=== PATIENT | female | born 1990 | race Two or more races ===

== ENCOUNTER 2025-05-14 14:51 | Inpatient (IN) | payer OTHER ==
[~2025-05-14] VITALS: Ht 162.6 cm; Wt 63.5 kg
--- NOTE | 2025-05-14 15:05 | ECG ---
[facility] Test Date: 2025-05-14 Test Time: 14:52:15 Pat Name: ANTHONY LONG Department: ED Room: Gender: F Prosthetics Lab Technician: gp : 1990 Requested By: FREDIS STOKES Order Number: [id number] Reading MD: Measurements Intervals [place] Rate: 116 P: 83 NH: 166 QRS: 48 QRSD: 117 T: 60 QT: 347 QTc: 483 Interpretive Statements Sinus tachycardia Probable left atrial enlargement Incomplete right bundle branch block Baseline wander in lead(s) V1,V3,V5,V6 Please click the below link to view image of tracing.
--- NOTE | 2025-05-14 15:54 | ED.PDOC ---
History of Present Illness HPI Comments Patient is a 34-year-old female with a past medical history of hypertension presented to the ED with a chief complaint of 2 episodes of syncope. Patient went to convenient stool in the morning down the following which EMS were called with the patient likely. While in the driveway at home she had an episode of dizziness, lightheadedness following which she fell down but was caught in her fall by her family, some cramping with a had were reported by the family. Patient denied any urinary, fecal incontinence, tongue bite, no postictal confusion after she regained consciousness of the patient reports she was never fully unconscious as she could hear people talking. Patient denied any di arrheal illness, symptoms of UTI, emesis with the last 2-3 days. Patient does report of drinking 8 cans of beer every day and her last drink was around 11:00 p.m. yesterday. Patient does not report of any episode of syncope in the past. Her last menstrual period was Wednesday last week Chief Complaint: Syncope Time Seen by MD: 15:12 Primary Care Provider: UNKNOWN Allergies: Coded Allergies: NO KNOWN ALLERGIES (Unverified , 05/14/25) Mode of Arrival: EMS Past Medical History PAST MEDICAL HISTORY: HTN Surgical History: Denies all surgeries Surgical History (Other): Knee surgery ASSOCIATE FINANCIAL ADVISOR History: No Pertinent ASSOCIATE FINANCIAL ADVISOR History Family History Family History: Unknown Family History (Other): Patient reports her mother has multiple medical conditions, denies any history of sudden cardiac in the family Social History Smoker: Non-Smoker Alcohol: Heavy Drugs: Denies Drug Use Lives In: Home Constitutional: reports: diaphoresis, fatigue EENTM: denies: blurred vision, double vision, ear bleeding, ear discharge, ear drainage, ear pain, ear ringing, eye pain, eye redness, hearing loss, mouth pain, mouth swelling, nasal discharge, nose bleeding, nose congestion, nose pain, photophobia, tearing, throat pain, throat swelling, voice changes, others Respiratory: denies: cough, hemoptysis, orthopnea, SOB at rest, shortness of breath, SOB with excertion, stridor, wheezing, others Cardiovascular: denies: chest pain, dizzy spells, diaphoresis, Dyspnea on exertion, edema, irregular heart beat, left arm pain, lightheadedness, palpitations, PND, syncope, others Gastrointestinal: denies: abdomen distended, abdominal pain, blood streaked bowels, constipated, diarrhea, dysphagia, difficulty swallowing, hematemesis, melena, nausea, poor appetite, poor fluid intake, rectal bleeding, rectal pain, vomiting, others Genitourinary: denies: abnormal vagina bleeding, burning, dyspareunia, dysuria, flank pain, frequency, hematuria, incontinence, pain, , vagina discharge, urgency, others Neurological: reports: dizziness, fainting, weakness Musculoskeletal: denies: back pain, gout, joint pain, joint swelling, muscle pain, muscle stiffness, neck pain, others Integumetry: denies: bruises, change in color, change in hair/nails, dryness, laceration, lesions, lumps, rash, wounds, others Allergic/Immunocompromised: denies: Difficulty Healing, Frequent Infections, Hives, Itching, others Hematologic/Lymphatic: denies: anemia, blood clots, easy bleeding, easy bruising, swollen glands, others Endocrine: denies: excessive hunger, excessive sweating, excessive thirst, excessive urination, flushing, intolerance to cold, intolerance to heat, unexplained weight gain, unexplained weight loss, others Psychiatric: denies: anxiety, bipolar disorder, depression, hopeless, panic disorder, schizophrenia, sleepless, suicidal, others Physical Exam General Appearance: Mild Distress HEENT: Normal ENT Inspection, Pharynx Normal, TMs Normal Neck: Full Range of Motion, Non-Tender, Normal, Normal Inspection Respiratory: Chest Non-Tender, Lungs Clear, No Accessory Muscle Use, No Respiratory Distress, Normal Breath Sounds Cardiovascular: No Edema, No JVD, No Murmur, No Gallop, Normal Peripheral Pulses, Regular Rate/Rhythm Breast Exam: Deferred Gastrointestinal: No Organomegaly, Non Tender, No Pulsatile Mass, Normal Bowel Sounds, Soft Genitalia: Deferred Pelvic: Deferred Rectal: Deferred Extremities: No calf tenderness, Normal capillary refill, Normal inspection, Normal range of motion, Non-tender, No pedal edema Neurologic: Alert, machine puller over II-XII nml as Tested, No Motor Deficits, Normal Affect, Normal Mood, No Sensory Deficits Cerebellar Function: Normal Reflexes: Normal Skin: Dry, Normal Color, Warm Peripheral Pulses: 2+ carotid (R), 2+ carotid (L), 2+ femoral (R), 2+ femoral (L), 2+ dorsalis pedis (R), 2+ dorsalis pedis (L), 2+ Radial (R), 2+ Radial (L) Lymphatic: No Adenopathy Was a procedure done? Was a procedure done?: No EKG EKG : Pulse Rate (adult): 116 [place]: Normal Cardiac Rhythm: ST Block: None Hypertrophy: None ST: Normal Differential Dx Considerations may include: Vasovagal syncope, dehydration, seizure, stroke, heat exhaustion X-Ray, Labs, Meds, VS Vital Signs Date Time Temp Pulse Resp B/P (MAP) Pulse Ox O2 Delivery O2 Flow Rate FiO2 05/14/25 20:15 99.4 97 14 143/94 (110) 97 99.4 05/14/25 18:00 98.0 91 18 134/95 (108) 97 98.0 05/14/25 16:00 100 20 146/92 (110) 96 05/14/25 15:54 116 05/14/25 15:45 97.6 107 22 177/84 (115) 96 97.6 05/14/25 15:45 Room Air* 0 21 05/14/25 15:07 100.0 114 16 124/63 (83) 99 100.0 05/14/25 14:52 116 Lab Test 05/14/25 20:45 05/14/25 17:53 05/14/25 17:34 05/14/25 15:47 Range/Units Urine Test Pending Urine Opiates Screen Pending Urine Fentanyl Screen Pending Urine Barbiturates Screen Pending Urine Phencyclidine Screen Pending Urine Amphetamines Screen Pending Urine Benzodiazepines Screen Pending Urine Cocaine Screen Pending Urine Cannabinoids Screen Pending Lactic Acid Level 5.1 *H 8.7 *H 0.4-2.0 mmol/L Blood Gas Specimen Type Arterial Blood Gas Sample Site Right radial Blood Gas Patient Temperature 37.0 Arterial Blood Date Drawn [id number] Arterial Blood pH 7.569 *H 7.350-7.450 Arterial Blood Partial Pressure CO2 17.4 *L 32.0-45.0 mmHg Arterial Blood Partial Pressure O2 90.4 83.0-108.0 mmHg Arterial Blood HCO3 15.5 L 21.0-28.0 mmol/L Arterial Blood Oxygen Saturation 97.5 94.0-98.0 % Arterial Blood Base Excess -3.8 L -2.0-3.0 mmol/L Arterial Blood Oxyhemoglobin 96.2 94.0-98.0 % Arterial Blood Carboxyhemoglobin 0.6 0.5-1.5 % Arterial Blood Methemoglobin 0.7 0.0-1.5 % Bipin Test Modified Blood Gas Total Hemoglobin 13.50 12.0-16.0 g/dL Blood Gas Modality Room air FiO2 % 21.0 Blood Gas Critical Value Read Back Yes Blood Gas Notified Whom Md sinclair jhajj Blood Gas Notified Time [id number] Blood Gas Notified By Rt justice reyna White Blood Count 7.6 4.4-10.8 10^3/uL Red Blood Count 3.97 L 4.0-5.20 10^6/uL Hemoglobin 13.5 12.2-16.2 g/dL Hematocrit 39.0 36.0-46.0 % Mean Corpuscular Volume 98.3 80.0-100.0 fL Mean Corpuscular Hemoglobin 34.1 H 28.0-32.0 pg Mean Corpuscular Hemoglobin Concent 34.7 32.0-36.0 g/dL Red Cell Distribution Width 15.8 H 11.8-14.3 % Platelet Count 220 140-450 10^3/uL Mean Platelet Volume 6.5 L 6.9-10.8 fL Neutrophils (%) (Auto) 87.7 H 37.0-80.0 % Lymphocytes (%) (Auto) 6.1 L 10.0-50.0 % Monocytes (%) (Auto) 6.0 0.0-12.0 % Eosinophils (%) (Auto) 0.0 0.0-7.0 % Basophils (%) (Auto) 0.2 0.0-2.0 % Neutrophils # (Auto) 6.7 1.6-8.6 10 ^3/uL Lymphocytes # (Auto) 0.5 0.4-5.4 10 ^3/uL Monocytes # (Auto) 0.5 0-1.3 10 ^3/uL Eosinophils # (Auto) 0 0-0.8 10 ^3/uL Basophils # (Auto) 0 0-0.2 10 ^3/uL Nucleated Red Blood Cells 0.0 % Sodium Level 138 136-145 mmol/L Potassium Level 2.1 *L 3.5-5.1 mmol/L Chloride Level 97 L 98-107 mmol/L Carbon Dioxide Level 18 L 20-31 mmol/L Anion Gap 23 H 5-15 Blood Urea Nitrogen 5 L 9-23 mg/dL Creatinine 0.58 0.550-1.02 mg/dL Glomerular Filtration Rate Calc 120 >90 mL/min BUN/Creatinine Ratio 8.6 L 10.0-20.0 Serum Glucose 93 74-106 mg/dL Calcium Level 10.0 8.7-10.4 mg/dL Magnesium Level 1.3 L 1.6-2.6 mg/dL Creatine Kinase 248 H 34-145 U/L Beta HCG, Quantitative 0.4 L 1.5-4.2 mIU/mL Plasma/Serum Blood Alcohol 51.7 H <10 mg/dL Current Medications Medications (Trade) Dose Ordered Sig/Catalino Route Start Time Stop Time Status Last Admin Sodium Chloride 1,000 ml @ 1,000 mls/hr Q1H ONCE IV 05/14/25 15:30 05/14/25 16:29 DC 05/14/25 16:19 Lorazepam (Ativan Inj) 1 mg ONCE ONCE IV 05/14/25 17:20 05/14/25 17:26 DC 05/14/25 17:20 Potassium Chloride 100 ml @ 50 mls/hr Q2H IV 05/14/25 17:30 05/14/25 23:29 05/14/25 20:28 Magnesium Sulfate/ Dextrose 100 ml @ 100 mls/hr ONCE ONCE IV 05/14/25 17:30 05/14/25 18:29 DC 05/14/25 18:00 Lactated Ringer's 1,000 ml @ 500 mls/hr Q2H ONCE IV 05/14/25 17:45 05/14/25 19:44 DC 05/14/25 18:00 Patient is a 34-year-old female who was brought in via EMS to the ED with a chief complaint of 2 syncopal episodes. Patient reported being in the sun for the last 2 days, reports drinking 8 beers every day, before passing out reported that she felt dizzy and lightheaded, no postictal confusion, no abnormal movements noticed with the patient was partially unconscious, no tongue bites, no fecal or urinary incontinence was seen. Upon the EMS arrival patient was tachycardic and ECG showed sinus tachycardia following which she was brought to the ER. Initial labs revealed hypokalemia, lactic acidosis, elevated creatinine kinase and elevated blood alcohol level. Patient was given IV fluids, banana bag and potassium and magnesium replacement. Patient insurance is [employer], talked over the phone with , , the patient will be admitted and [place] has given authorization. Time of 1ST Reevaluation: 17:00 Reevaluation 1ST: Unchanged Time of 2ND Reevaluation: 18:00 Reevaluation 2ND: Improved Patient Education/Counseling: Diagnosis, Treatment, Prognosis Family Education/Counseling: No Family Present SEPSIS Sepsis Screen Date sepsis recognized/suspect: May 14, 2025 Time Sepsis recognized/suspect: 1454 Recent Procedure: No On Antibiotic Therapy: No Respiratory Rate >20: No Heart Rate >90: Yes Temp<36 C (96.8 F) or >38.3 C: No SBP <90 or MAP <65 mmHG: No New Acute Mental Status Change: No Is the patient on CPAP, BIPAP,: No Physician Orders Drug Screen (05/14/25 15:17) Test, Urine (05/14/25 15:17) Head Without Contrast (05/14/25 15:17) Heplock Iv (05/14/25 ) Potassium Chl 20meq/100ml (05/14/25 17:30) Abg W/ Co-Ox (05/14/25 17:22) Folic Acid... (05/14/25 18:00) Chest Xray 1 View (05/14/25 19:36) Vital Signs Date Time Temp Pulse Resp B/P (MAP) Pulse Ox O2 Delivery O2 Flow Rate FiO2 05/14/25 20:15 99.4 97 14 143/94 (110) 97 99.4 05/14/25 18:00 98.0 91 18 134/95 (108) 97 98.0 05/14/25 16:00 100 20 146/92 (110) 96 05/14/25 15:54 116 05/14/25 15:45 97.6 107 22 177/84 (115) 96 97.6 05/14/25 15:45 Room Air* 0 21 05/14/25 15:07 100.0 114 16 124/63 (83) 99 100.0 05/14/25 14:52 116 Laboratory Tests Test 05/14/25 15:47 05/14/25 17:53 Lactic Acid Level 8.7 mmol/L (0.4-2.0) *H 5.1 mmol/L (0.4-2.0) *H White Blood Count 7.6 10^3/uL (4.4-10.8) Medications Medications Dose Ordered Sig/Catalino Route Start Time Stop Time Status Last Admin Dose Admin Lactated Ringer's 1,000 ml @ 500 mls/hr Q2H ONCE IV 05/14/25 17:45 05/14/25 19:44 DC 05/14/25 18:00 Lorazepam 1 mg ONCE ONCE IV 05/14/25 17:20 05/14/25 17:26 DC 05/14/25 17:20 Magnesium Sulfate/ Dextrose 100 ml @ 100 mls/hr ONCE ONCE IV 05/14/25 17:30 05/14/25 18:29 DC 05/14/25 18:00 Potassium Chloride 100 ml @ 50 mls/hr Q2H IV 05/14/25 17:30 05/14/25 23:29 05/14/25 20:28 Sodium Chloride 1,000 ml @ 1,000 mls/hr Q1H ONCE IV 05/14/25 15:30 05/14/25 16:29 DC 05/14/25 16:19 Departure 1 Departure Time of Disposition: 18:10 Impression: Primary Impression: Syncope Additional Impressions: Vasovagal near syncope Dehydration Alcohol use disorder SIRS (systemic inflammatory response syndrome) Heat exhaustion Disposition: ADMITTED INPATIENT Condition: Stable Critical Care Note Critical Care Time?: No Stability Stability form required: No Heart Score Heart Score: Heart Score Response (Comments) Value History N/A 0 EKG Normal 0 Age <45 0 Risk Factors 1 or 2 risk factors 1 Troponin N/A 0 Total 1 FREDIS STOKES RESIDENT May 14, 2025 15:54
[2025-05-14 16:12] LABS: Hematocrit 39.0 % (36.0-46.0); Hemoglobin 13.5 g/dL (12.2-16.2); Mean Corpuscular Hemoglobin 34.1 pg (28.0-32.0); Mean Corpuscular Volume 98.3 fL (80.0-100.0); Nucleated Red Blood Cells % 0.0 %
[2025-05-14] MEDS: SODIUM CHLORIDE 0.9% 1,000 ML IV ONE (16:19)
[2025-05-14 16:21] LABS: Sodium 138 mmol/L (136-145)
[2025-05-14 16:22] LABS: Anion Gap 23 (5-15); Calcium 10.0 mg/dL (8.7-10.4)
[2025-05-14 16:27] LABS: BUN/Creatinine Ratio 8.6 (10.0-20.0); Glucose 93 mg/dL (74-106)
[2025-05-14 16:38] LABS: Blood Urea Nitrogen 5 mg/dL (9-23); Carbon Dioxide 18 mmol/L (20-31); Chloride 97 mmol/L (98-107); Creatine Kinase IFCC 248 U/L (34-145)
[2025-05-14 16:39] LABS: Lactic Acid w/Reflex 8.7 mmol/L (0.4-2.0); Potassium 2.1 mmol/L (3.5-5.1)
[2025-05-14] MEDS: LORazepam 2MG/ML-1ML VIAL IV ONE (17:20)
[2025-05-14] MEDS: LORazepam 2MG/ML-1ML VIAL ONE (17:26)
[2025-05-14] MEDS ORDERED: LACTATED RINGER'S 1,000 ML IV ONE (17:30)
[2025-05-14 17:55] LABS: Base Excess -3.8 mmol/L (-2.0-3.0)
[2025-05-14] MEDS: LACTATED RINGER'S 1,000 ML IV ONE (18:00)
[2025-05-14] MEDS: MAGNESIUM SULFATE 1GM/100ML 100 ML IV ONE (18:00)
--- NOTE | 2025-05-14 19:46 | DVH ---
EXAM: CT HEAD WITHOUT CONTRAST INDICATION: syncope TECHNIQUE: CT of the head without intravenous contrast. Radiation Dose Information: CT Dose: CTDI volume is 52.79 mGy. Dose-length product is 846.13 mGy*cm The dose indicators for CT are the volume Computed Tomography (CT) Dose Index (CTDIvol) and the Dose Length Product (DLP), and are measured in units of mGy and mGy-cm, respectively. These indicators are not patient dose, but values generated from the CT scanner acquisition factors. The report includes radiation exposure data for exposures received during this examination. COMPARISON: None FINDINGS: There is no evidence of acute intracranial hemorrhage, extra-axial collection, mass effect, midline s hift, herniation or hydrocephalus. The ventricles, sulci and cisterns are age appropriate. The bowers-white differentiation is intact. Patchy periventricular and subcortical white matter hypoattenuation is nonspecific but may be related to small vessel ischemic disease. The visualized paranasal sinuses and mastoid air cells are clear. The surrounding soft tissues and osseous structures are unremarkable. IMPRESSION: 1. No acute intracranial abnormality.
--- NOTE | 2025-05-14 20:17 | DVH ---
CHEST RADIOGRAPH Indication: SOB Technique: Single frontal view of the chest was obtained Comparison: None FINDINGS/IMPRESSION: Mild haziness overlying the mid to lower lungs, likely at least partially referable to soft tissue at tenuation. Unremarkable cardiomediastinal silhouette. No pleural effusion or pneumothorax. No acute osseous abnormality.
[2025-05-14] MEDS: POTASSIUM CHL 20MEQ/100ML 100 ML IV SCH (20:28)
[2025-05-14 22:27] LABS: Amphetamine Screen, Urine Neg (NEGATIVE); Barbiturate Scree,Urine Neg (NEGATIVE); Benzodiazephine Screen, Urine Neg (NEGATIVE); Cannabinoid Screen, Urine Neg (NEGATIVE); Cocaine Screen, Urine Neg (NEGATIVE); Opiate Scree,Urine Neg (NEGATIVE); Phencyclidine Screen, Urine Neg (NEGATIVE)
[2025-05-14] MEDS ORDERED: ACETAMINOPHEN 325 MG TAB PO PRN (23:00)
[2025-05-14] MEDS ORDERED: NITROGLYCERIN 0.4 MG SL TAB SL PRN (23:00)
[2025-05-14] MEDS ORDERED: MORPHINE SULFATE INJ 2 MG/ml SYRG IV PRN (23:00)
[2025-05-14] MEDS ORDERED: ONDANSETRON HCL 4 MG/2 ML VIAL IV PRN (23:00)
--- NOTE | 2025-05-14 23:04 | DVHHP2 ---
History of Present Illness Reason for Visit: Syncope History of Present Illness 34-year-old female presents for evaluation of syncopal episode. Patient reports having two witnessed syncopal episodes today. One while she was shopping and the other one arriving home. She reports having some dizziness prior to the event. She denies having any symptoms after the event. She states not being completely unconscious as she recalls hearing people talking around her during the episode. No chest pain, headache or blurred vision. Past Medical History Hypertension Past Surgical History Denies Family History Noncontributory Smoke: No ALCOHOL: heavy Drugs: None Lives: with Family Review of Systems Review of Systems Review of systems are currently negative otherwise addressed in HPI. Allergies: Coded Allergies: NO KNOWN ALLERGIES (Unverified , 05/14/25) Medications Current Medications Medications Dose Ordered Sig/Catalino Route Start Time Stop Time Status Last Admin Dose Admin Potassium Chloride 100 ml @ 50 mls/hr Q2H IV 05/14/25 17:30 05/14/25 23:29 05/14/25 22:11 50 MLS/HR Folic Acid 1 mg/ Magnesium Sulfate 8 meq/ Multivitamins 10 ml/Thiamine HCl 100 mg/Sodium Chloride 1,013.2 ml @ 126.247 mls/hr DAILY@1800 INJ 05/14/25 18:00 05/17/25 17:59 Lisinopril 5 mg DAILY PO 05/15/25 10:00 Hydrochlorothiazide 25 mg DAILY PO 05/15/25 10:00 Ondansetron HCl 4 mg Q4HP PRN IV 05/14/25 23:00 Acetaminophen 650 mg Q6HP PRN PO 05/14/25 23:00 Nitroglycerin 0.4 mg Q5MINP PRN SL 05/14/25 23:00 Morphine Sulfate 2 mg Q30M PRN IV 05/14/25 23:00 Exam Vital Signs Vital Signs Date Time Temp Pulse Resp B/P (MAP) Pulse Ox O2 Delivery O2 Flow Rate FiO2 05/14/25 20:15 99.4 97 14 143/94 (110) 97 99.4 05/14/25 15:45 Room Air* 0 21 Exam Gen: 34-year-old female in no apparent distress. Skin: Warm, dry, normal color and texture, no rash. HEENT: Normocephalic atraumatic, mucous membranes moist and pink. Neck: Cervical and supraclavicular nodes normal without enlargement, trachea is midline, thyroid gland is normal without masses. Pulmonary: Clear to auscultation and percussion bilaterally. Cardiac: Regular rate and rhythm. No murmur Abdomen: Soft, nontender, nondistended, bowel sounds present all 4 quadrants, no guarding, no rigidity, no organomegaly. Extremities: No cyanosis, clubbing, no edema Neuro: Cranial nerves II through XII grossly intact, normal affect and speech, no focal motor deficits. Labs/Xrays ORDERING PHYSICIAN: FREDIS STOKES PROCEDURE(s): HWOCT - HEAD WITHOUT CONTRAST REASON: syncope ORDER NUMBER(s): [id number], ACCESSION NUMBER(s): [id number] EXAM: CT HEAD WITHOUT CONTRAST INDICATION: syncope TECHNIQUE: CT of the head without intravenous contrast. Radiation Dose Information: CT Dose: CTDI volume is 52.79 mGy. Dose-length product is 846.13 mGy*cm The dose indicators for CT are the volume Computed Tomography (CT) Dose Index (CTDIvol) and the Dose Length Product (DLP), and are measured in units of mGy and mGy-cm, respectively. These indicators are not patient dose, but values generated from the CT scanner acquisition factors. The report includes radiation exposure data for exposures received during this examination. COMPARISON: None FINDINGS: There is no evidence of acute intracranial hemorrhage, extra-axial collection, mass effect, midline shift, herniation or hydrocephalus. The ventricles, sulci and cisterns are age appropriate. The bowers-white differentiation is intact. Patchy periventricular and subcortical white matter hypoattenuation is nonspecific but may be related to small vessel ischemic disease. The visualized paranasal sinuses and mastoid air cells are clear. The surrounding soft tissues and osseous structures are unremarkable. IMPRESSION: 1. No acute intracranial abnormality. RING PHYSICIAN: FREDIS STOKES PROCEDURE(s): CXR1 - CHEST XRAY 1 VIEW REASON: SOB ORDER NUMBER(s): [id number], ACCESSION NUMBER(s): [id number] CHEST RADIOGRAPH Indication: SOB Technique: Single frontal view of the chest was obtained Comparison: None FINDINGS/IMPRESSION: Mild haziness overlying the mid to lower lungs, likely at least partially referable to soft tissue attenuation. Unremarkable cardiomediastinal silhouette. No pleural effusion or pneumothorax. No acute osseous abnormality. Labs Test 05/14/25 20:45 05/14/25 17:53 05/14/25 17:34 05/14/25 15:47 Range/Units Urine Test Negative Negative Urine Opiates Screen Neg NEGATIVE Urine Fentanyl Screen Neg NEGATIVE Urine Barbiturates Screen Neg NEGATIVE Urine Phencyclidine Screen Neg NEGATIVE Urine Amphetamines Screen Neg NEGATIVE Urine Benzodiazepines Screen Neg NEGATIVE Urine Cocaine Screen Neg NEGATIVE Urine Cannabinoids Screen Neg NEGATIVE Lactic Acid Level 5.1 *H 0.4-2.0 mmol/L Blood Gas Specimen Type Arterial Blood Gas Sample Site Right radial Blood Gas Patient Temperature 37.0 Arterial Blood Date Drawn [id number] Arterial Blood pH 7.569 *H 7.350-7.450 Arterial Blood Partial Pressure CO2 17.4 *L 32.0-45.0 mmHg Arterial Blood Partial Pressure O2 90.4 83.0-108.0 mmHg Arterial Blood HCO3 15.5 L 21.0-28.0 mmol/L Arterial Blood Oxygen Saturation 97.5 94.0-98.0 % Arterial Blood Base Excess -3.8 L -2.0-3.0 mmol/L Arterial Blood Oxyhemoglobin 96.2 94.0-98.0 % Arterial Blood Carboxyhemoglobin 0.6 0.5-1.5 % Arterial Blood Methemoglobin 0.7 0.0-1.5 % Bipin Test Modified Blood Gas Total Hemoglobin 13.50 12.0-16.0 g/dL Blood Gas Modality Room air FiO2 % 21.0 Blood Gas Critical Value Read Back Yes Blood Gas Notified Whom Md sinclair jhajj Blood Gas Notified Time [id number] Blood Gas Notified By Rt justice reyna White Blood Count 7.6 4.4-10.8 10^3/uL Red Blood Count 3.97 L 4.0-5.20 10^6/uL Hemoglobin 13.5 12.2-16.2 g/dL Hematocrit 39.0 36.0-46.0 % Mean Corpuscular Volume 98.3 80.0-100.0 fL Mean Corpuscular Hemoglobin 34.1 H 28.0-32.0 pg Mean Corpuscular Hemoglobin Concent 34.7 32.0-36.0 g/dL Red Cell Distribution Width 15.8 H 11.8-14.3 % Platelet Count 220 140-450 10^3/uL Mean Platelet Volume 6.5 L 6.9-10.8 fL Neutrophils (%) (Auto) 87.7 H 37.0-80.0 % Lymphocytes (%) (Auto) 6.1 L 10.0-50.0 % Monocytes (%) (Auto) 6.0 0.0-12.0 % Eosinophils (%) (Auto) 0.0 0.0-7.0 % Basophils (%) (Auto) 0.2 0.0-2.0 % Neutrophils # (Auto) 6.7 1.6-8.6 10 ^3/uL Lymphocytes # (Auto) 0.5 0.4-5.4 10 ^3/uL Monocytes # (Auto) 0.5 0-1.3 10 ^3/uL Eosinophils # (Auto) 0 0-0.8 10 ^3/uL Basophils # (Auto) 0 0-0.2 10 ^3/uL Nucleated Red Blood Cells 0.0 % Sodium Level 138 136-145 mmol/L Potassium Level 2.1 *L 3.5-5.1 mmol/L Chloride Level 97 L 98-107 mmol/L Carbon Dioxide Level 18 L 20-31 mmol/L Anion Gap 23 H 5-15 Blood Urea Nitrogen 5 L 9-23 mg/dL Creatinine 0.58 0.550-1.02 mg/dL Glomerular Filtration Rate Calc 120 >90 mL/min BUN/Creatinine Ratio 8.6 L 10.0-20.0 Serum Glucose 93 74-106 mg/dL Calcium Level 10.0 8.7-10.4 mg/dL Magnesium Level 1.3 L 1.6-2.6 mg/dL Creatine Kinase 248 H 34-145 U/L Beta HCG, Quantitative 0.4 L 1.5-4.2 mIU/mL Plasma/Serum Blood Alcohol 51.7 H <10 mg/dL Assessment/Plan Assessment/Plan Assessment Syncope Alcohol abuse Dehydration Electrolyte imbalance Anion gap acidosis Accelerated hypertension Plan Admit the patient to telemetry to the hospitalist Maintenance IV fluids Monitor electrolytes Resume home medications Echocardiogram/carotid ultrasound pending Continue treatment per orders Plan discussed with: Patient My Orders Orders - CASSIA HANSON Procedure Category Date Status Time Basic Metabolic Panel LAB 05/14/25 Logged 22:50 Basic Metabolic Panel LAB 05/15/25 Verified 04:00 Lisinopril Tablet PHA 05/15/25 In Process (Zestril Tablet) 10:00 Hydrochlorothiazide PHA 05/15/25 In Process Tablet (Hydrochlorot 10:00 Lactic Acid W/ Reflex LAB 05/14/25 Logged Order 22:50 Sodium Chloride 0.9% PHA 05/14/25 In Process 23:00 Admit ADMIT 05/14/25 Transmitted 22:50 Ondansetron Hcl PHA 05/14/25 In Process (Zofran) 23:00 Complete Blood Count LAB 05/15/25 Verified 04:00 Cardiac DIET 05/15/25 Transmitted Diet-2gna,Lofat,Lochol Breakfast Echo 2d Mode Cardiac US 05/14/25 Logged DOP 22:50 Carotid Duplx W Color US 05/14/25 Logged DOP 22:50 Condition: Fair SANDY 05/14/25 In Process 22:50 Acetaminophen Tablet PHA 05/14/25 In Process (Tylenol Tablet) 23:00 Bedrest With Bathroom SANDY 05/14/25 In Process Privileg 22:50 Nitroglycerin PHA 05/14/25 In Process Sublingual (Ntrostat 23:00 Morphine Sulfate PHA 05/14/25 In Process Injection 23:00 Stat Ekg For Chest SANDY 05/14/25 In Process Pain 22:50 Notify Md Of Changes SANDY 05/14/25 In Process From Base 22:50 Casket Trimmer For SANDY 05/14/25 In Process 24 Hours 22:50 Emergency Dysrhythmia SANDY 05/14/25 In Process Protocol 22:50 Rhythm Strips Once SANDY 05/14/25 In Process Every Shift 22:50 Oxygen By Nasal RT 05/14/25 Transmitted Cannula 22:50 Date of Service: May 14, 2025 Billing Provider: CASSIA HANSON Common Visit Codes: [id number] INP/OBS CARE (HIGH) CASSIA HANSON May 14, 2025 23:03
[2025-05-14 23:34] LABS: Chloride 102 mmol/L (98-107); Sodium 139 mmol/L (136-145)
[2025-05-14 23:35] LABS: Anion Gap 8 (5-15); Carbon Dioxide 29 mmol/L (20-31)
[2025-05-14] MEDS: SODIUM CHLORIDE 0.9% 500 ML IV ONE (23:36)
[2025-05-14 23:40] LABS: Calcium 8.5 mg/dL (8.7-10.4); Potassium 2.9 mmol/L (3.5-5.1)
[2025-05-14 23:42] LABS: BUN/Creatinine Ratio 9.4 (10.0-20.0); Blood Urea Nitrogen < 5 mg/dL (9-23); Glucose 108 mg/dL (74-106)
[2025-05-15] MEDS: FOLIC ACID 1 MG, MAGNESIUM SULF SDV 50% 8 MEQ, MULTIPLE VITAMIN 10 ML, THIAMINE INJ 100... INJ SCH (02:50)
--- NOTE | 2025-05-15 03:16 | DVH ---
Carotid Duplex Clinical History: syncope Comparison: None Technique: Duplex Doppler evaluation of the extracranial carotid and vertebral arteries including color Doppler and spectral/pulsed waveform analysis was performed. Findings: RIGHT SIDE: The peak systolic velocities are 88 cm/s in the CCA, 72 cm/s in the ICA. The ICA/CCA ratio is 0.8. The external carotid artery is patent with peak systolic velocity of 82 cm/s proximally. There is appropriate antegrade flow in the right vertebral artery. LEFT SIDE: The peak systolic velocities are 70 cm/s in the CCA, 96 cm/s in the ICA. The ICA/CCA ratio is 1.4. The external carotid artery is patent with peak systolic velocity of 82 cm/s proximally. There is appropriate antegrade flow in the left vertebral artery. IMPRESSION: 1. No hemodynamically significant stenosis noted in the right carotid system. 2. No hemodynamically significant stenosis noted in the left carotid system. Reference: Radiology 2003; 229:340-346 Normal ICA PSV is <125 cm/sec and no plaque or intimal thickening is visible sonographically additional criteria include ICA/CCA PSV ratio <2.0 and ICA EDV <40 cm/sec <50% ICA stenosis ICA PSV is <125 cm/sec and plaque or intimal thickening is visible sonographically additional criteria include ICA/CCA PSV ratio <2.0 and ICA EDV <40 cm/sec 50-69% ICA stenosis ICA PSV is 125-230 cm/sec and plaque is visible sonographically additional criteria include ICA/CCA PSV ratio of 2.0-4.0 and ICA EDV of 40-100 cm/sec 70% ICA stenosis but less than near occlusion ICA PSV is >230 cm/sec and visible plaque and luminal narrowing are seen at bowers-scale and color Dopp ler ultrasound (the higher the Doppler parameters lie above the threshold of 230 cm/sec, the greater the likelihood of severe disease) additional criteria include ICA/CCA PSV ratio >4 and ICA EDV >100 cm/sec
[2025-05-15] MEDS: hydrALAZINE HCL 20 MG/ML VL IV PRN (03:50)
[2025-05-15 05:17] LABS: Hemoglobin 12.5 g/dL (12.2-16.2); Nucleated Red Blood Cells % 0.0 %
[2025-05-15 05:20] LABS: Hematocrit 36.1 % (36.0-46.0); Mean Corpuscular Hemoglobin 34.0 pg (28.0-32.0); Mean Corpuscular Volume 98.5 fL (80.0-100.0)
[2025-05-15 05:26] LABS: Chloride 104 mmol/L (98-107); Sodium 140 mmol/L (136-145)
[2025-05-15 05:27] LABS: Anion Gap 10 (5-15); Calcium 9.0 mg/dL (8.7-10.4); Carbon Dioxide 26 mmol/L (20-31)
[2025-05-15 05:32] LABS: Glucose 90 mg/dL (74-106)
[2025-05-15 05:55] LABS: BUN/Creatinine Ratio 10.6 (10.0-20.0); Blood Urea Nitrogen < 5 mg/dL (9-23); Potassium 3.0 mmol/L (3.5-5.1)
[2025-05-15 07:50] VITALS: PULSE 81; RESP 16; O2SAT 97
[2025-05-15] MEDS: POTASSIUM CHL 20 Meq TABLET PO ONE ×2 (09:54→14:45)
[2025-05-15] MEDS: LISINOPRIL 5 MG TAB PO SCH (09:55)
[2025-05-15] MEDS: hydroCHLOROthiazide 25 MG TAB PO SCH (10:36)
[2025-05-15 11:10] VITALS: BP 127/93; PULSE 89; RESP 18; TEMP 98; O2SAT 100
[2025-05-15 12:29] LABS: Potassium 3.3 mmol/L (3.5-5.1)
[2025-05-15 12:35] LABS: Magnesium 2.0 mg/dL (1.6-2.6)
--- NOTE | 2025-05-15 12:38 | DVHPN2 ---
Progress Note Date Seen: May 15, 2025 Medical Necessity Reason Pt with a Central, PICC or Fol: No Subjective Patient reports: No new complaints Review of Systems: HEENT:Normal, CVS:Normal, RESPIRATORY:Normal, GI:Normal, :Normal, MSK:Normal, NEURO:Normal Objective vital signs Vital Sign Date Time Temp Pulse Resp B/P (MAP) Pulse Ox O2 Delivery O2 Flow Rate FiO2 05/15/25 11:10 98.0 89 18 127/93 (104) 100 98.0 05/15/25 11:10 Room Air* 0 21 Total Intake and Output 05/14/25 05/14/25 05/15/25 14:59 22:59 06:59 Intake Total 2305.434 ml Balance 2305.434 ml medications Current Medications Medications Dose Ordered Sig/Catalino Route Start Time Stop Time Status Last Admin Dose Admin Folic Acid 1 mg/ Magnesium Sulfate 8 meq/ Multivitamins 10 ml/Thiamine HCl 100 mg/Sodium Chloride 1,013.2 ml @ 126.247 mls/hr DAILY@1800 INJ 05/14/25 18:00 05/17/25 17:59 05/15/25 02:50 126.247 MLS/HR Lisinopril 5 mg DAILY PO 05/15/25 10:00 05/15/25 09:55 5 MG Hydrochlorothiazide 25 mg DAILY PO 05/15/25 10:00 05/15/25 10:36 25 MG Ondansetron HCl 4 mg Q4HP PRN IV 05/14/25 23:00 Acetaminophen 650 mg Q6HP PRN PO 05/14/25 23:00 Nitroglycerin 0.4 mg Q5MINP PRN SL 05/14/25 23:00 Morphine Sulfate 2 mg Q30M PRN IV 05/14/25 23:00 Hydralazine HCl 10 mg Q6HP PRN IV 05/15/25 03:30 05/15/25 03:50 10 MG Examination: GENERAL:Normal, HEENT:Normal, NECK:Normal, LUNGS:Normal, CVS:Normal, ABDOMEN:Normal, MSK:Normal, SKIN:Normal, NEURO:Normal, :Normal laboratory and microbiology Laboratory Tests 05/15/25 12:02 05/15/25 04:44 Test 05/15/25 04:44 Range/Units Serum Glucose 90 74-106 mg/dL Problem List/Assessment/Plan Problem List/Assessment/Plan #1 multiple syncopal episodes: ivf, banana bag #2 hyokalemia/hypomag: replace #3 alcohol abuse #4 lactic acidosis Plan discussed with: Patient Date of Service: May 15, 2025 Billing Provider: CASSIA MORALES MD Common Visit Codes: [id number] INP/OBS CARE(HIGH) CASSIA MORALES MD May 15, 2025 12:38
[2025-05-15] MEDS ORDERED: POTASSIUM CHL 20 Meq TABLET PO ONE (12:45)
[2025-05-15 14:02] VITALS: BP 130/89; PULSE 88; RESP 18; TEMP 98.3; O2SAT 97
[2025-05-15] MEDS: MAGNESIUM OXIDE 400 MG TAB PO ONE (14:45)
[2025-05-15] MEDS: MULTIPLE VITAMIN TAB PO ONE (14:45)
[2025-05-15] MEDS: FOLIC ACID 1 MG TAB PO ONE (14:46)
[2025-05-15] MEDS: THIAMINE HCL 100 MG TAB PO ONE (14:46)
--- NOTE | 2025-05-15 16:42 | DVHDS ---
DATE OF DISCHARGE: 05/15/2025 HISTORY OF PRESENT ILLNESS: The patient was a 34-year-old lady who is admitted with history of repeated episodes of syncope and has history of hypertension. HOSPITAL COURSE: The patient had a CT of the head that was unremarkable. The patient had carotid Doppler that showed no significant stenosis. The patient's tox screen was positive for alcohol. Urine test was negative. The patient was hypokalemic. She will be discharged once hypokalemia is corrected, to resume her home medications and follow up with her primary in one week. The patient's creatinine kinase was elevated at 248. FINAL DIAGNOSES: Therefore: * Multiple syncopal episodes, likely secondary to dehydration/alcohol abuse. * Severe hypokalemia. * Mild rhabdomyolysis. * Hypomagnesemia. * History of hypertension. Time spent in discharge planning and review of plan with the patient and nursing was 37 minutes. MD DWIGHT Mason/EKT TID: [id number] RECEIPT: [id number]
[2025-05-16] MEDS ORDERED: MAGNESIUM OXIDE 400 MG TAB PO SCH (10:00)
[2025-05-16] MEDS ORDERED: FOLIC ACID 1 MG TAB PO SCH (10:00)
[2025-05-16] MEDS ORDERED: THIAMINE HCL 100 MG TAB PO SCH (10:00)
[2025-05-16] MEDS ORDERED: MULTIPLE VITAMIN TAB PO SCH (10:00)
== END 2025-05-15 17:29 | disposition home or self-care (01) | DRG 641 ==
LOC: EDBD 14:51 → ER 14:51 → OVERFLOW 22:50
PROVIDERS: ADMIT Internal Medicine; ATTEND Internal Medicine
DX: E86.0 Dehydration (principal); M62.82 Rhabdomyolysis; R65.10 Systemic inflammatory response syndrome (SIRS) of non-infectious origin without acute organ dysfunction; E87.20 Acidosis, unspecified; I10 Essential (primary) hypertension; F10.10 Alcohol abuse, uncomplicated; E87.6 Hypokalemia; E83.42 Hypomagnesemia; T67.5XXA Heat exhaustion, unspecified, initial encounter; Z79.899 Other long term (current) drug therapy; X30.XXXA Exposure to excessive natural heat, initial encounter; Y90.2 Blood alcohol level of 40-59 mg/100 ml
CPT/HCPCS: 36415; 36600; 70450; 71045; 80048; 80307; 80320; 81025; 82550; 82805; 83605; 83735; 84132; 84702; 85025; 93005; 93886; 96361; 96365; 96375; G0378; J3480